=== PATIENT | male | born 1950 | race Caucasian/White ===

== ENCOUNTER 2023-11-25 13:43 | Emergency (ER) | payer OTHER, MEDICARE ==
[2023-11-25] MEDS ORDERED: dilTIAZem 25 MG/5 ML VIAL ONE ×2 (14:09→15:02)
[2023-11-25 14:35] LABS: #Basophils 0.04 10x3/uL (0.0-0.2); #Eosinphils 0.22 10x3/uL (0.0-0.5); #Neutrophils 4.13 10x3/uL (1.5-8.4); %Basophils 0.6 % (0.0-2.0); %Eosinophils 3.1 % (0.0-6.0); %Lymphocytes 30.4 % (18.0-47.0); %Monocytes 7.1 % (0.0-10.0); %Neutrophils 58.5 % (40.0-75.0); Hematocrit 42.5 % (38.8-50.0); Hemoglobin 13.7 g/dL (13.5-17.5); Mean Corpuscular HGB CONC 32.2 g/dL (32.0-36.0); Mean Corpuscular Hemoglobin 30.5 pg (27.0-33.0); Mean Corpuscular Volume 94.7 fL (81.2-95.1); Mean Platelet Volume 10.4 fL (7.4-10.4); Platelet Count 194 10x3/uL (150-450); RBC Distribution Width 13.1 % (11.5-14.5); Red Blood Cell (RBC) Count 4.49 10x6/uL (4.32-5.72); White Blood Cell (WBC) Count 7.1 10x3/uL (3.5-10.5)
[2023-11-25 14:47] LABS: ALT (SGPT) 27 U/L (8-55); AST (SGOT) 31 U/L (5-34); Albumin 4.5 g/dL (3.4-4.8); Alkaline Phosphatase 71 U/L (40-110); Anion Gap 18 mmol/L (10-20); BUN (Urea Nitrogen) 28 mg/dL (8.4-25.7); Bilirubin, Total 0.6 mg/dL (0.2-1.2); Calc. Creatinine Clearance 0 mL/min (70-130); Calcium 10.1 mg/dL (7.8-10.44); Carbon Dioxide 23 mmol/L (23-31); Chloride 107 mmol/L (98-107); Estimated GFR 67; Globulin 3.2 g/dL (2.4-3.5); Glucose 119 mg/dL (83-110); Magnesium 1.7 mg/dL (1.6-2.6); Potassium 3.9 mmol/L (3.5-5.1); Protein, Total 7.7 g/dL (5.8-8.1); Sodium 144 mmol/L (136-145)
[2023-11-25 14:50] LABS: Troponin I Less than 0.010 ng/mL (< 0.028)
[2023-11-25 15:26] LABS: Bilirubin Neg (Negative); Blood, Urine 10 (Negative); Clarity Clear (Clear); Glucose, Urine (Dipstick) Normal (Negative); Ketone, Urine 5 mg/dL (Negative); Leukocyte 25 (Negative); Nitrite Negative (Negative); Protein, Urine (Dipstick) Negative (Neg-Trace); Specific Gravity, Urine 1.015 (1.005-1.030); Urobilinogen Normal mg/dL (Less than 2)
[2023-11-25 16:22] LABS: Bacteria/HPF 1+ HPF (None Seen); CAUTI Indications for Culture Alt mental st,lethar; RBC/HPF 0-3 HPF (0-3); Squamous Epithelial 0-3 HPF (0-3); WBC/HPF 0-3 HPF (0-3)
[2023-11-25 16:24] LABS: Mucous/LPF 1+ LPF (<2+); Urine Culture Reflex No No
[2023-11-25] MEDS ORDERED: Enoxaparin 100 MG (1 mL) SYRINGE ONE (17:02)
== END 2023-11-25 20:07 | disposition short-term general hospital (02) ==
LOC: CSHERS 13:43
DX: I48.91 Unspecified atrial fibrillation (principal)
CPT/HCPCS: 36415; 71045; 80053; 81001; 83735; 84443; 84484; 85025; 93005; 96372; 96374; 96376; J1650

== ENCOUNTER 2024-03-16 12:34 | Outpatient (CLI) | payer OTHER ==
[~2024-03-16 12:34] MED LIST: Iopamidol 370 76% 100 ML VIAL ONE
== END 2024-03-16 12:35 | disposition home or self-care (01) ==
LOC: CSHCT 12:34
PROVIDERS: ATTEND Internal Medicine Cardiovascular Disease
DX: R94.39 Abnormal result of other cardiovascular function study (principal); I48.0 Paroxysmal atrial fibrillation; I71.21 Aneurysm of the ascending aorta, without rupture; I71.23 Aneurysm of the descending thoracic aorta, without rupture
CPT/HCPCS: 71275; 82565